=== PATIENT | female | born 1955 | race Caucasian/White ===

== ENCOUNTER → 2017-06-30 | Emergency (ER) | payer OTHER ==
[~2017-06-30] VITALS: Ht 162.6 cm; Wt 93.9 kg
[~2017-06-30] MED LIST: ATENOLOL50 MG; LEVOTHROID25 MCG; VISTARIL25 MG
== END | disposition left against medical advice (07) ==
LOC: ER 07:38
DX: Z53.20 Procedure and treatment not carried out because of patient's decision for unspecified reasons (principal)